=== PATIENT | male | born 1975 | race African-American/Black ===

== ENCOUNTER 2019-11-22 11:41 | Emergency (ER) | payer OTHER, BC ==
[~2019-11-22] VITALS: Ht 185.4 cm; Wt 92.5 kg
[2019-11-22 12:09] LABS: URINE BILIRUBIN NEGATIVE (Negative); URINE BLOOD TRACE (Negative); URINE CLARITY SL CLOUDY; URINE COLOR YELLOW; URINE GLUCOSE-RANDOM NEGATIVE (Negative); URINE KETONES NEGATIVE (Negative); URINE LEUKOCYTES-REFLEX 1+ (Negative); URINE NITRITE-REFLEX NEGATIVE (Negative); URINE PROTEIN NEGATIVE (Negative); URINE UROBILINOGEN 0.2 E.U./dl (0.2-1.0)
[2019-11-22 12:16] LABS: BACTERIA-REFLEX None Seen /HPF (None Seen); CASTS None Seen /LPF (None Seen); CRYSTALS None Seen /LPF (None Seen); MUCUS 4-6 Moderate strn/LPF (None Seen); SQUAMOUS 0-3 Few /LPF (0-3)
[2019-11-22 13:27] LABS: ABSOLUTE BASOPHILS 0.1 thou/uL (0.0-0.2); ABSOLUTE EOSINOPHILS 0.1 thou/uL (0.0-0.7); ABSOLUTE LYMPHOCYTES 2.2 thou/uL (0.8-5.3); ABSOLUTE MONOCYTES 0.8 thou/uL (0.0-1.2); EOSINOPHILS 1.1 %; HEMATOCRIT 42.1 % (42.0-52.0); HEMOGLOBIN 14.6 gm/dL (14.0-18.0); MCH 31.7 pg (26.0-34.0); MCHC 34.7 g/dL (28.0-37.0); MCV 91.4 fL (80.0-100.0); MONOCYTES 8.3 %; MPV 8.2 fl. (7.2-11.1); NUCLEATED RBCS 0 /100WBC; PLATELET COUNT* 262 thou/uL (150-400); POLYS 65.6 %; RBC 4.61 mil/uL (4.50-6.00); RDW-CV 15.2 % (10.5-14.5); WBC 9.1 thou/uL (4.0-11.0)
[2019-11-22 13:34] LABS: POTASSIUM 4.1 mmol/L (3.5-5.1)
[2019-11-22 13:46] LABS: ALBUMIN 3.8 g/dL (3.4-5.0); TOTAL BILIRUBIN 0.5 mg/dL (<0.1-1.0); TOTAL PROTEIN 8.1 g/dL (6.4-8.2)
[2019-11-22] MEDS ORDERED: KEFLEX500 M1 PO (14:03)
[2019-11-22] MEDS ORDERED: NORCO 5-325 TA1 EAC2 PO (14:03)
[2019-11-22 14:12] VITALS: BP 141/91
== END 2019-11-22 14:12 | disposition home or self-care (01) ==
LOC: M.ERS 11:41
PROVIDERS: Emergency Medicine
DX: N45.3 Epididymo-orchitis (principal); N39.0 Urinary tract infection, site not specified; F12.10 Cannabis abuse, uncomplicated